=== PATIENT | female | born 1970 | race African-American/Black ===

== ENCOUNTER 2024-09-06 11:10 | Outpatient (CLI) | payer OTHER | END 2024-09-06 11:11 | disposition home or self-care (01) | LOC: NAV RAD 11:10 | PROVIDERS: ATTEND Family Medicine | DX: M25.562 Pain in left knee (principal); I48.0 Paroxysmal atrial fibrillation; M54.50 Low back pain, unspecified; M17.12 Unilateral primary osteoarthritis, left knee | CPT/HCPCS: 71046; 72100 ==